=== PATIENT | female | born 1980 | race Caucasian/White ===

== ENCOUNTER 2023-06-01 13:08 | Outpatient (OUT) | payer BC, SELFPAY ==
--- NOTE | 2023-06-01 13:14 | MM_ITS ---
Patient Name: ARELIS MCDONALD MR#: [id number] : 1980 Exam Date: 06/01/2023 Ordering Doctor: DR Carlos Perez . RADIOLOGY REPORT PROCEDURE: MM TOMOSYNTHESIS SCREENING BI COMPARISON: None. INDICATIONS: Screening Calculator Name NCI Breast Cancer Risk Assessment Tool 5 Year Breast Cancer Risk 0.60% Lifetime Breast Cancer Risk 7.10% Personal Breast Cancer No Personal Ovarian Cancer No Treatments None Family Cancers None LOCATION: [facility] BREAST COMPOSITION: Scattered areas fibroglandular density. FINDINGS: DIAGNOSTIC CATEGORY 2--BENIGN FINDING: RIGHT BREAST: No significant suspicious finding. Small benign appearing lymph node lower-inner quadrant. LEFT BREAST: No significant suspicious finding. RECOMMENDATIONS: ROUTINE MAMMOGRAM AND CLINICAL EVALUATION IN 12 MONTHS. PLEASE NOTE: A NORMAL MAMMOGRAM DOES NOT EXCLUDE THE POSSIBILITY OF BREAST CANCER. A CLINICALLY SUSPICIOUS PALPABLE LUMP SHOULD BE BIOPSIED. Dictated by: Gurpreet Rousseau M.D. on 06/02/2023 at 13:08 Approved by: Gurpreet Rousseau M.D. on 06/02/2023 at 13:10
== END 2023-06-01 13:09 | disposition home or self-care (01) ==
LOC: MAMMO 13:09
PROVIDERS: PCP Family Medicine; Visit Provider Family Medicine
DX: Z12.31 Encounter for screening mammogram for malignant neoplasm of breast (principal)
CPT/HCPCS: 77063; 77067

== ENCOUNTER 2023-06-01 13:10 | Outpatient (OUT) | payer BC, SELFPAY ==
--- NOTE | 2023-06-01 13:16 | US_ITS ---
The [address] [address] Patient Name: ARELIS MCDONALD MRN: [id number] date: 1980 Sex: F Assigned Patient Location: US Current Patient Location: MAMMO Accession/Order Number: [id number] Exam Date: 06/01/2023 13:30 Report Date: 06/03/2023 00:51 At the request of: MARLY DIAS Procedure: US soft tissue head and neck EXAM: US soft tissue head and neck HISTORY: Localized Swelling Mass Lump R22.1 ; chronic right submandibular lump COMPARISON: None. TECHNIQUE: Percutaneous ultrasound FINDINGS: Anterior right submandibular region 7 x 6 x 2 mm oval hypoechoic mass versus complex cyst; no appreciable internal blood flow. US/US soft tissue head and neck IMPRESSION: 1. Small hypoechoic lesion corresponding to patient's palpable lump; nonspecific but more suggestive of a mass or abnormal lymph node and complex cysts. Consider ultrasound-guided tissue sampling. Electronically authenticated by: MAGNOLIA FERREIRA Date: 06/03/2023 00:51
== END 2023-06-01 13:11 | disposition home or self-care (01) ==
LOC: US 13:10
PROVIDERS: PCP Family Medicine; Visit Provider Surgery
DX: Z12.31 Encounter for screening mammogram for malignant neoplasm of breast (principal); R22.1 Localized swelling, mass and lump, neck
CPT/HCPCS: 76536; 77063; 77067

== ENCOUNTER 2023-06-30 09:02 | Outpatient (OUT) | payer BC, SELFPAY ==
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
== END 2023-06-30 09:03 | disposition home or self-care (01) ==
LOC: SLEEP 09:02
PROVIDERS: PCP Family Medicine; Visit Provider Family Medicine
DX: G47.33 Obstructive sleep apnea (adult) (pediatric) (principal)
CPT/HCPCS: 95806

== ENCOUNTER 2023-08-28 10:47 | Outpatient (OUT) | payer BC, SELFPAY ==
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
[2023-08-28 11:16] LABS: Basophils Absolute Auto 0.1 10^3/uL (0.0-0.1); Basophils Percent Auto 0.9 % (0.2-2.0); Eosinophils Absolute Auto 0.6 10^3/uL (0.0-0.7); Eosinophils Percent Auto 7.7 % (0.9-7.0); Hemoglobin 14.6 g/dL (12.0-16.0); Immature Granulocytes Abs Auto 0.02 10^3/uL (0.00-0.03); Immature Granulocytes Pct Auto 0.3 % (0.0-0.5); Lymphocytes Absolute Auto 2.6 10^3/uL (1.2-3.8); Mean Corpuscular HGB Conc 33.2 g/dL (29.9-35.2); Mean Corpuscular Hemoglobin 32.4 pg (26.7-34.0); Mean Corpuscular Volume 97.6 fL (81.0-99.0); Mean Platelet Volume 10.7 fL (9.5-13.5); Monocytes Absolute Auto 0.4 10^3/uL (0.3-0.8); Neutrophils Percent Auto 52.1 % (43.0-75.0); Platelet Count 250 10^3/uL (150-450); Red Blood Count 4.51 10^6/uL (4.20-5.40); Red Cell Distribution Width 12.4 % (11.0-15.0); White Blood Count 7.7 10^3/uL (4.0-11.0)
[2023-08-28 11:21] LABS: Estimated Average Glucose 114 mg/dL; Glycohemoglobin A1C 5.6 % (4.5-6.2)
[2023-08-28 12:43] LABS: Alanine Aminotransferase 38 U/L (14-59); Albumin Globulin Ratio 0.9; Albumin Level 3.5 g/dL (3.4-5.0); Alkaline Phosphatase 82 U/L (46-116); Anion Gap 11.1; Aspartate Amino Transferase 20 U/L (15-37); BUN Creatinine Ratio 14.5; Bilirubin Total 0.4 mg/dL (0.2-1.0); Calcium 8.8 mg/dL (8.5-10.1); Chloride 104 mmol/L (98-107); Chol HDL Ratio 3.4; Cholesterol 177 mg/dL (<=200); Estimated GFR (African America >60 (>=60); Estimated GFR (Non-African Ame >60 (>=60); Glucose 92 mg/dL (74-106); HDL Cholesterol 52 mg/dL (40-60); LDL Cholesterol Calculated 108.4 mg/dL; Potassium 4.1 mmol/L (3.5-5.1); Sodium 140 mmol/L (136-145); Thyroid Stimulating Hormone 1.794 uIU/mL (0.358-3.740); Total Protein 7.5 g/dL (6.4-8.2); Triglycerides 83 mg/dL (<=150); VLDL CHOLESTEROL 16.6 mg/dL
[2023-08-30 15:07] LABS: Insulin 9.4 uIU/mL (2.6-24.9)
== END 2023-08-28 10:48 | disposition home or self-care (01) ==
LOC: LAB 10:48
PROVIDERS: PCP Family Medicine; Visit Provider Family Medicine
DX: Z00.00 Encounter for general adult medical examination without abnormal findings (principal)
CPT/HCPCS: 36415; 80053; 80061; 82306; 83036; 83525; 83540; 84436; 84443; 84481; 85025